=== PATIENT | female | born 1955 | race African-American/Black ===

== ENCOUNTER → 2017-11-13 | Day surgery (SDC) | payer OTHER, MEDICARE ==
[~2017-11-13] VITALS: Ht 167.6 cm; Wt 59.0 kg
[~2017-11-13] MED LIST: AMLODIPINE BESY10 M1 PO; ATHENOL325 MG PO; COLACE100 M1 PO; FISH OIL 1,0001 EAC5 PO; HYDROCHLOROTHIA25 M1 PO; LABETALOL HCL200 M1 PO; LISINOPRIL40 M1 PO; MULTI-DAY VITA1 EACH PO; ONE-A-DAY ESSE1 EACH PO; PERCOCET 5-3251 EACH PO; PROAIR HFA8.5 GM INH; VALIUM5 M2 PO; VITAMIN B-121000 MC3 PO; VITAMIN C500 M9 PO; VITAMIN E200 UNI3 PO
--- NOTE | 2017-11-13 20:08 | Operative Report ---
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 Post-Operative Diagnosis: Same Estimated Blood Loss: 50ml to 100ml Surgeon/Polystyrene Bead Molder: Ang Bunn MD Anesthesia: general endotracheal tube Operative/Procedure Note Note: Patient was counseled in regards the procedure the alternatives risks and expected outcomes as relates to her request for surgical intervention to treat her right-sided capsule contraction with an undersized implant as well as descent of the inframammary fold on the left providing significant asymmetry. We talked about exchanging the right breast implant for slightly larger as well as a capsulectomy and repositioning of the implant more medially. On the left we talked about elevating the inframammary fold. She was marked in the standing position. An informed consent was signed. We have discussed procedure multiple occasions including infection of the implant is a possibility which has happened to the patient in the past. Informed consent was signed after full discussion. She was taken to the operating placed supine on the table Venodyne boots are placed and then general anesthesia was established intravenous antibiotics are given. Chest reprepped and draped in usual sterile fashion. Ioban draping was placed around the edge and the nipple cutter was placed over the right breast. The inframammary fold incision on the left was deepened. The capsule was not entered. Advancement of the inframammary fold was carried out with the use of nonabsorbable sutures in to rib periosteum. Copious irrigation was carried out of 3 layer closure was performed after good positioning of the fold. Attention then turned to the right breast with a glove change. The previous inframammary incision was deepened and the capsule was entered. The implant was removed and a capsulectomy was performed. Medialization of the lateral pocket was performed with capsulorrhaphy. A 250 mL implant was then placed in the pocket with good symmetry. 3 layer closure was carried out of the wound. Of note no touch technique was used for the implant Baltazar funnel Betadine to the skin triple antibiotic and Betadine irrigation.
== END ==
LOC: STS 01:58
DX: Z85.3 Personal history of malignant neoplasm of breast (principal); N65.1 Disproportion of reconstructed breast; I10 Essential (primary) hypertension
CPT/HCPCS: 93005; 93010; C1789; J0690; J1580; J2250; J3490